=== PATIENT | female | born 1985 | race Caucasian/White ===

== ENCOUNTER 2018-05-17 17:24 | Emergency (ER) | payer OTHER ==
[2018-05-17 18:21] LABS: APPEARANCE,URINE SLIGHTLY-CLOUDY; BILIRUBIN,URINE NEGATIVE (NEGATIVE); COLOR,URINE YELLOW; GLUCOSE, URINE NEGATIVE (NEGATIVE); KETONES,URINE TRACE mg/dL (NEGATIVE); LEUKOCYTE ESTERASE,URINE TRACE (NEGATIVE); NITRITE,URINE NEGATIVE (NEGATIVE); PROTEIN,URINE NEGATIVE (NEGATIVE); URINE SPECIFIC GRAVITY 1.023
--- NOTE | 2018-05-17 18:35 | ER Document Report ---
ED General - General Chief Complaint: OB Problem (<20wks) Stated Complaint: ABDOMINAL PAIN Time Seen by Provider: 05/17/18 17:40 Notes: Patient is a 33-year-old female, , approximately 20 weeks gravid that presents to the emergency department for chief complaint of abdominal cramping, and vaginal bleeding. Patient reports that she has had some spotting since May 10, it was red and then switch to brown, and then had eventually stopped, she has been having lower abdominal cramping and low back pain she has had a history of miscarriages in the past and was concerned about this. She was told she is a low-lying placenta, but she was not told that it was previa. She denies noting any fevers, chills, night sweats, nausea, vomiting, chest pain or shortness of breath. She currently rates her pain as a 4 out of 10, but declines needing any pain medication at this time. Describes her pain as an aching and cramping sensation in the bilateral lower pelvis and lower back. Past Medical History: Denies chronic medical conditions Past Surgical History: Knee surgery x2, D&C x2 Social History: Former smoker, denies alcohol or drug use Family History: Reviewed and noncontributory for presenting illness Allergies: Reviewed, see documented allergy list. REVIEW OF SYSTEMS: Other than noted above, the 12 point review of systems was reviewed with the patient and were negative, all pertinent findings are included in the HPI. PHYSICAL EXAMINATION: Vital signs reviewed, nursing noted reviewed. GENERAL: Well-appearing, well-nourished and in no acute distress. HEAD: Atraumatic, normocephalic. EYES: Eyes appear normal, extraocular movements intact, sclera anicteric, conjunctiva are normal. ENT: nares patent, oropharynx clear without exudates. Moist mucous membranes. NECK: Normal range of motion, supple without lymphadenopathy LUNGS: Breath sounds clear to auscultation bilaterally and equal. No wheezes rales or rhonchi. HEART: Regular rate and rhythm without murmurs ABDOMEN: Soft, gravid, nontender, normoactive bowel sounds. No rebound, guarding, or rigidity. No masses appreciated. EXTREMITIES: Nontender, good range of motion, no pitting or edema. NEUROLOGICAL: No focal neurological deficits. Moves all extremities spontaneously Motor and sensory grossly intact on exam. PSYCH: Normal mood, normal affect. SKIN: Warm, Dry, normal turgor, no rashes or lesions noted on exposed skin TRAVEL OUTSIDE OF THE [place] IN LAST 30 DAYS: No - Related Data Allergies/Adverse Reactions: acetaminophen [From Percocet] Allergy (Verified 05/17/18 17:25) oxycodone [From Percocet] Allergy (Verified 05/17/18 17:25) Past Medical History - Social History Smoking Status: Former Smoker Chew tobacco use (# tins/day): No Frequency of alcohol use: None Drug Abuse: None Family History: Reviewed & Not Pertinent Patient has suicidal ideation: No Patient has homicidal ideation: No Renal/ Medical History: Denies: Hx Peritoneal Dialysis Past Surgical History: Reports: Hx Gynecologic Surgery - D&Cx2, Hx Orthopedic Surgery - R knee x2 Physical Exam - Vital signs Vitals: Temp Pulse Resp BP Pulse Ox 98.4 F 71 18 114/66 97 05/17/18 17:35 05/17/18 17:35 05/17/18 17:35 05/17/18 17:35 05/17/18 17:35 Course - Re-evaluation Re-evalutation: Patient seen and examined vital signs reviewed. Laboratory data and imaging were ordered as appropriate for the patient's presenting symptoms and complaint, with consideration of any critical or life threatening conditions that may be associated with their obtained history and exam as noted above. Patient declined any need for any medication, she was offered Tylenol, but declined at this time. Results were reviewed when available and demonstrated single live intrauterine , 20 weeks gravid, there is no placenta previa, low-lying placenta however, patient given copy of her results The patient was re-evaluated and was stable, no further symptoms or vaginal bleeding Evaluation was most consistent with vaginal bleeding in early , patient advised to follow-up with ENGINEERING OPERATOR. Results were discussed with the patient at this point, after careful consideration I feel that that patient can be discharged from the emergency department, the patient was educated treatments and reasons to return to the emergency department based on their presumed diagnosis as noted above, they were advised to followup with a primary care physician in 2-3 days. Patient was agreeable to plan of care. *Note is created using voice recognition software and may contain spelling, syntax or grammatical errors. Laboratory 05/17/18 05/17/18 05/17/18 17:40 19:37 19:37 Beta HCG, Quant 01550.00 H Total Beta HCG POSITIVE Urine Color YELLOW Urine Appearance SLIGHTLY-CLOUDY Urine pH 6.0 Ur Specific [place] 1.023 Urine Protein NEGATIVE Urine Glucose (UA) NEGATIVE Urine Ketones TRACE H Urine Blood NEGATIVE Urine Nitrite NEGATIVE Urine Bilirubin NEGATIVE Urine Urobilinogen 2.0 H Ur Leukocyte Esterase TRACE H Urine WBC (Auto) 2 Urine RBC (Auto) 0 Squamous Epi Cells Auto 7 Urine Mucus (Auto) OCC Urine Ascorbic Acid NEGATIVE Blood Type A POSITIVE Rhogam Indicated RHOGAM NOT INDICATED Obstetrics Ultrasound 05/17/18 17:51 IMPRESSION: LIVING INTRAUTERINE . ESTIMATED GESTATIONAL AGE 20 weeks 0 days. NO VISUALIZED ANOMALIES. Trimester of : Second trimester - 13 weeks 1 day to 27 weeks 6 days. - Vital Signs Vital signs: Temp Pulse Resp BP Pulse Ox 98.8 F 77 18 110/67 99 05/17/18 20:41 05/17/18 20:41 05/17/18 20:41 05/17/18 20:41 05/17/18 20:41 - Laboratory Laboratory results interpreted by me: 05/17/18 05/17/18 17:40 19:37 Beta HCG, Quant 04057.00 H Urine Ketones TRACE H Urine Urobilinogen 2.0 H Ur Leukocyte Esterase TRACE H Discharge - Discharge Clinical Impression: Vaginal bleeding in Condition: Stable Disposition: HOME, SELF-CARE Instructions: Bleeding During Early ([facility]) Additional Instructions: Please follow-up with ENGINEERING OPERATOR, if you have any worsening symptoms, develop lightheadedness, or worsening pain, do not hesitate to return to the emergency department. Referrals: [facility] [Provider Group] - Follow up in 3-5 days
--- NOTE | 2018-05-17 19:15 | RADIOLOGY REPORT (SQ) ---
EXAM DESCRIPTION: U/S OB 14+ TRNABD 1GES W/O DOP COMPLETED DATE/TIME: 05/17/2018 6:38 pm REASON FOR STUDY: cramping, vaginal bleeding gestational age 19 weeks 6 days by history. COMPARISON: None. TECHNIQUE: Static and Dynamic grayscale imaging performed of gravid uterus using transabdominal appr oach. Additional selected color Doppler and spectral images recorded. All stored on PACS. LIMITATIONS: None. FINDINGS: FETUSES SEEN:1 EGA: 20 weeks 0 days Calculated using BPD,FL,HC,AC documented on images. No discrepancy with clinica l dates. CLAIRE: 10/04/2018 EFW: Not applicable. Grams PERCENTILE: Not applicable. CHRISTI: Adequate. PLACENTA: Posterior. Low-lying. No previa. Grade 1 PRESENTATION: Breech ANATOMY: Not evaluated. HEART RATE: 157 beats per minute. MATERNAL ADNEXA: Maternal ovaries not visualized. CERVICAL LENGTH: 3 cm. Closed. OTHER: No other significant finding. IMPRESSION: LIVING INTRAUTERINE . ESTIMATED GESTATIONAL AGE 20 weeks 0 days. NO VISUALIZED ANOMALIES. Trimester of : Second trimester - 13 weeks 1 day to 27 weeks 6 days. TECHNICAL DOCUMENTATION: JOB ID: [id number] [employer]- All Rights Reserved Reading location - IP/workstation name: [email or web address]
[2018-05-17 20:43] VITALS: BP 110/67
== END 2018-05-17 20:44 | disposition home or self-care (01) ==
LOC: ER 17:24
DX: O46.92 Antepartum hemorrhage, unspecified, second trimester (principal); O26.892 Other specified pregnancy related conditions, second trimester; R10.2 Pelvic and perineal pain; O99.89 Other specified diseases and conditions complicating pregnancy, childbirth and the puerperium; M54.5 Low back pain; Z3A.20 20 weeks gestation of pregnancy; Z87.59 Personal history of other complications of pregnancy, childbirth and the puerperium; Z87.891 Personal history of nicotine dependence; Z88.6 Allergy status to analgesic agent; Z88.5 Allergy status to narcotic agent
CPT/HCPCS: 36415; 76805; 81001; 84702; 86900; 86901; 99284